=== PATIENT | female | born 1995 | race Two or more races ===

== ENCOUNTER 2025-02-20 09:33 | Observation (INO) | payer MEDICAID, OTHER ==
[2025-02-20] MEDS ORDERED: PREN-129 OR (09:44)
[2025-02-20] MEDS ORDERED: PRENCAP75 OR (09:44)
--- NOTE | 2025-02-21 08:39 | DVHDS2 ---
Physician Discharge Progress N Final Diagnosis: cramping 28wks Operations or Procedures: Operations or Procedures nst reactive reviwed,sono Condition on Discharge: Good Disposition: Home Discharge Instructions: Diet: Regular Activity: No Restrictions, As Tolerated Follow Up/Referral: establish PNC Medications: na Follow Up Care: Specialist: 1w Discharge Statement: "Patient was advised to return to the ER or call 911 if any headaches, dizziness, shortness of breath, chest pain, abdominal pain, bleeding, fevers, or worsening of medical condition. Patient was counseled about treatment plan, medications, possible side effects, patientverbalized understanding. All questions were answered to the best of my ability. This discharge took greater then 30 minutes in planning, reviewing documentation, counseling the patient, and discussing with other team members." Visit Coding OBGYN Date of Service: Feb 20, 2025 Billing Provider: AGUSTINA MORRIS DO MEDICAL GENETICS DIRECTOR Common Visit Codes: 91280-[id number] OBS CARE (HIGH) MEDICAL GENETICS DIRECTOR Procedure Codes: 83255-02- NON-STRESS TEST AGUSITNA MORRIS DO Feb 21, 2025 08:39
== END 2025-02-20 10:23 | disposition home or self-care (01) ==
LOC: UNDOADMOB 09:33 → LDRP 09:33 → UNDODISOB 10:23
PROVIDERS: ADMIT Obstetrics & Gynecology; ATTEND Obstetrics & Gynecology
DX: O26.893 Other specified pregnancy related conditions, third trimester (principal); R25.2 Cramp and spasm; Z3A.28 28 weeks gestation of pregnancy; Z79.899 Other long term (current) drug therapy
CPT/HCPCS: 59025; 81002; 94760; G0378